=== PATIENT | male | born 1975 | race Caucasian/White ===

== ENCOUNTER 2017-12-28 13:41 | Emergency (ER) | payer OTHER ==
[~2017-12-28] VITALS: Ht 170.2 cm; Wt 89.8 kg
[2017-12-28] MEDS ORDERED: NORFLEX100MG PO (16:08)
[2017-12-28] MEDS ORDERED: KETO10TA2 PO (16:08)
== END 2017-12-28 17:58 | disposition home or self-care (01) ==
LOC: ER 13:41
DX: M54.5 Low back pain (principal)

== ENCOUNTER 2018-05-04 11:26 | Outpatient (CLI) | payer OTHER ==
[~2018-05-04 11:26] MED LIST: KETO10TA2 PO; NORFLEX100MG PO
== END 2018-05-04 16:22 | disposition home or self-care (01) ==
LOC: RAD 11:26
DX: M25.561 Pain in right knee (principal)

== ENCOUNTER 2018-05-23 08:15 | Outpatient (CLI) | payer OTHER | END 2018-05-23 08:24 | disposition home or self-care (01) | LOC: MRI 08:15 | DX: M23.203 Derangement of unspecified medial meniscus due to old tear or injury, right knee (principal) | CPT/HCPCS: 73721 ==

== ENCOUNTER 2018-07-19 06:10 | Day surgery (SDC) | payer OTHER ==
[2018-07-19] MEDS ORDERED: DUI500 PO (11:20)
[2018-07-19] MEDS ORDERED: ULTRACET PO (11:20)
[2018-07-19] MEDS ORDERED: ALEVE220 M1 PO (11:20)
== END 2018-07-19 15:25 | disposition home or self-care (01) ==
LOC: CIR.AMB 06:10
DX: S83.231A Complex tear of medial meniscus, current injury, right knee, initial encounter (principal); S83.281A Other tear of lateral meniscus, current injury, right knee, initial encounter; M94.261 Chondromalacia, right knee

== ENCOUNTER 2018-09-09 21:28 | Emergency (ER) | payer OTHER ==
[~2018-09-09] VITALS: Ht 165.1 cm; Wt 79.4 kg
[~2018-09-09 21:28] MED LIST changes: +ALEVE220 M1 PO; +DUI500 PO; +ULTRACET PO
== END 2018-09-09 22:49 | disposition home or self-care (01) ==
LOC: ER 21:28
DX: M25.561 Pain in right knee (principal)

== ENCOUNTER 2018-09-15 08:33 | Outpatient (CLI) | payer OTHER | END 2018-09-15 15:00 | disposition home or self-care (01) | LOC: LAB 08:33 | DX: M25.461 Effusion, right knee (principal) ==

== ENCOUNTER → 2018-09-23 14:11 | Outpatient (CLI) | payer OTHER | END | disposition home or self-care (01) | LOC: LAB 14:11 | DX: E78.49 Other hyperlipidemia (principal); Z00.00 Encounter for general adult medical examination without abnormal findings; Z11.3 Encounter for screening for infections with a predominantly sexual mode of transmission; B00.1 Herpesviral vesicular dermatitis ==

== ENCOUNTER 2019-11-08 14:53 | Emergency (ER) | payer OTHER ==
[~2019-11-08] VITALS: Ht 170.2 cm; Wt 86.2 kg
[2019-11-08] MEDS ORDERED: KETO10TA2 PO (19:10)
== END 2019-11-08 19:18 | disposition home or self-care (01) ==
LOC: ER 14:53
DX: S71.112A Laceration without foreign body, left thigh, initial encounter (principal); S83.8X2A Sprain of other specified parts of left knee, initial encounter; M25.552 Pain in left hip; X50.0XXA Overexertion from strenuous movement or load, initial encounter; Y93.F2 Activity, caregiving, lifting; Y92.69 Other specified industrial and construction area as the place of occurrence of the external cause; Y99.8 Other external cause status

== ENCOUNTER 2019-11-30 21:14 | Emergency (ER) | payer OTHER ==
[~2019-11-30] VITALS: Ht 170.2 cm; Wt 90.7 kg
[2019-11-30] MEDS ORDERED: DICLOFENAC SODI75 MG PO (21:41)
== END 2019-11-30 21:45 | disposition home or self-care (01) ==
LOC: ER 21:14
DX: M79.672 Pain in left foot (principal)

== ENCOUNTER → 2020-10-02 | Emergency (ER) | payer OTHER ==
[~2020-10-02] VITALS: Ht 170.2 cm; Wt 95.3 kg
[~2020-10-02] MED LIST changes: +CYCLOBENZAPRINE10 MG PO; +DICLOFENAC SODI75 MG PO
== END | disposition home or self-care (01) ==
LOC: ER 19:41
DX: M79.621 Pain in right upper arm (principal)

== ENCOUNTER 2020-12-05 20:09 | Emergency (ER) | payer OTHER ==
[~2020-12-05] VITALS: Ht 170.2 cm; Wt 90.7 kg
== END 2020-12-05 23:14 | disposition home or self-care (01) ==
LOC: ER 20:09
DX: M25.512 Pain in left shoulder (principal); M25.511 Pain in right shoulder; M54.2 Cervicalgia; Z03.818 Encounter for observation for suspected exposure to other biological agents ruled out

== ENCOUNTER 2020-12-25 17:45 | Emergency (ER) | payer OTHER ==
[~2020-12-25] VITALS: Ht 170.2 cm; Wt 90.7 kg
== END 2020-12-25 21:30 | disposition home or self-care (01) ==
LOC: ER 17:45
DX: M54.50 Low back pain, unspecified (principal)

== ENCOUNTER 2021-01-18 20:23 | Emergency (ER) | payer OTHER ==
[~2021-01-18] VITALS: Ht 162.6 cm; Wt 88.5 kg
[2021-01-18] MEDS ORDERED: CYCLOBENZAPRINE10 MG PO (21:59)
== END 2021-01-18 22:19 | disposition home or self-care (01) ==
LOC: ER 20:23
DX: M62.830 Muscle spasm of back (principal)

== ENCOUNTER 2021-03-21 17:58 | Emergency (ER) | payer OTHER ==
[~2021-03-21] VITALS: Ht 170.2 cm; Wt 90.7 kg
== END 2021-03-21 18:59 | disposition home or self-care (01) ==
LOC: ER 17:58
DX: M54.59 Other low back pain (principal)

== ENCOUNTER 2021-07-11 17:47 | Emergency (ER) | payer OTHER ==
[~2021-07-11] VITALS: Ht 170.2 cm; Wt 90.7 kg
== END 2021-07-11 21:54 | disposition home or self-care (01) ==
LOC: ER 17:47
DX: M54.50 Low back pain, unspecified (principal); M25.561 Pain in right knee